=== PATIENT | female | born 1955 | race Caucasian/White ===

== ENCOUNTER 2020-07-31 14:23 | Outpatient (CLI) | payer BC, SELFPAY ==
--- NOTE | 2020-07-31 14:30 | MM_ITS ---
WS: [id number] Exam: [id number] Date/Time of Exam: 07/31/2020 2:41 PM Reason For Exam: SCREENING VIEWS: MLO and CC views both breasts. Comparison made with prior exam of 11/20/2017. Findings: There was no sign of mass, architectural distortion or suspicious calcification in either breast. Fa tty MM/[place] [id number] Impression: BI-RADS: 2-Benign FOLLOW-UP: 1 Year Follow-up This mammogram was also analyzed by the Computer Aided Detection System [employer] Educ[employer].
== END 2020-07-31 14:24 | disposition home or self-care (01) ==
LOC: RADSHAW 14:27
PROVIDERS: PCP Family Medicine; Visit Provider Family Medicine
DX: Z12.31 Encounter for screening mammogram for malignant neoplasm of breast (principal)
CPT/HCPCS: 77067

== ENCOUNTER 2021-07-28 12:55 | Outpatient (CLI) | payer MEDICARE, BC, SELFPAY ==
[2021-07-28 13:09] VITALS: BP 157/75; PULSE 76; RESP 18; TEMP 37.1; O2SAT 99; BMI 28.7
--- NOTE | 2021-07-28 13:11 | PC.NURSE ---
Assessments by Aye Rosenberg and documented by Shannon RN
--- NOTE | 2021-07-28 13:17 | PC.NURSE ---
Infusion started by LINSEY Rosenberg/documented by Shannon RN
[2021-07-28 13:34] VITALS: BP 146/81; PULSE 82; RESP 16; TEMP 37.2; O2SAT 98
--- NOTE | 2021-07-28 13:43 | PC.NURSE ---
Assessments by AG/Documented by LALITA
[2021-07-28 14:34] VITALS: BP 140/73; PULSE 82; RESP 17; TEMP 36.2; O2SAT 98
== END 2021-07-28 12:56 | disposition home or self-care (01) ==
PROVIDERS: PCP Family Medicine; Visit Provider Family Medicine
DX: U07.1 COVID-19 (principal)
CPT/HCPCS: 96365

== ENCOUNTER → 2021-12-04 14:55 | Outpatient (BNVA) | payer MEDICARE, BC, SELFPAY | PROVIDERS: PCP Family Medicine; Visit Provider Nurse Practitioner | DX: S82.61XA Displaced fracture of lateral malleolus of right fibula, initial encounter for closed fracture (principal); S86.912A Strain of unspecified muscle(s) and tendon(s) at lower leg level, left leg, initial encounter; W19.XXXA Unspecified fall, initial encounter; M25.471 Effusion, right ankle | CPT/HCPCS: 73562; 73610 ==

== ENCOUNTER → 2022-01-03 11:28 | Outpatient (BNVA) | payer MEDICARE, BC, SELFPAY | PROVIDERS: PCP Family Medicine; Visit Provider Podiatrist Foot & Ankle Surgery | DX: W01.0XXA Fall on same level from slipping, tripping and stumbling without subsequent striking against object, initial encounter (principal); S82.831A Other fracture of upper and lower end of right fibula, initial encounter for closed fracture | CPT/HCPCS: 73610; 99213 ==

== ENCOUNTER → 2022-02-24 08:14 | Outpatient (BNVA) | payer MEDICARE, BC, SELFPAY | PROVIDERS: PCP Family Medicine; Visit Provider Podiatrist Foot & Ankle Surgery | DX: S82.831A Other fracture of upper and lower end of right fibula, initial encounter for closed fracture (principal); W01.0XXA Fall on same level from slipping, tripping and stumbling without subsequent striking against object, initial encounter; M25.571 Pain in right ankle and joints of right foot | CPT/HCPCS: 73610; 99213; 99214 ==

== ENCOUNTER → 2022-03-18 13:37 | Outpatient (BNVA) | payer MEDICARE, BC, SELFPAY | PROVIDERS: PCP Family Medicine; Visit Provider Nurse Practitioner Women's Health | DX: Z01.419 Encounter for gynecological examination (general) (routine) without abnormal findings (principal); Z12.39 Encounter for other screening for malignant neoplasm of breast | CPT/HCPCS: 87624 ==

== ENCOUNTER 2022-04-08 10:37 | Outpatient (CLI) | payer MEDICARE, BC, SELFPAY ==
--- NOTE | 2022-04-08 10:43 | MM_ITS ---
WS: [id number] BILATERAL SCREENING DIGITAL BREAST TOMOSYNTHESIS MAMMOGRAM WITH CAD HISTORY: Z12.39 - Encounter for other screening for malignant neoplasm... COMPARISON: 07/31/2020 and 11/20/2017 Bilateral CC and MLO views with tomosynthesis and synthetic mammography submitted. Computer aided det ection analyzed. Breast composition: There are scattered areas of fibroglandular density. No suspicious masses, microc alcifications or architectural distortion. MM/[place] [id number] IMPRESSION: BI-RADS: 1-Negative FOLLOW UP: 1 Year Follow-up
== END 2022-04-08 10:38 | disposition home or self-care (01) ==
LOC: RAD 10:41
PROVIDERS: PCP Family Medicine; Visit Provider Nurse Practitioner Women's Health
DX: Z12.31 Encounter for screening mammogram for malignant neoplasm of breast (principal)
CPT/HCPCS: 77063; 77067

== ENCOUNTER → 2022-12-20 11:17 | Outpatient (BNVA) | payer MEDICARE, BC, SELFPAY | PROVIDERS: PCP Family Medicine; Visit Provider Family Medicine | DX: Z00.00 Encounter for general adult medical examination without abnormal findings (principal); E78.5 Hyperlipidemia, unspecified | CPT/HCPCS: 80053; 80061 ==

== ENCOUNTER 2022-12-28 09:56 | Emergency (ER) | payer MEDICARE, BC, SELFPAY ==
[2022-12-28 11:01] VITALS: BP 181/85; PULSE 81; TEMP 36.6; O2SAT 100; BMI 30.4
--- NOTE | 2022-12-28 11:06 | XR_ITS ---
WS: [id number] Cervical spine, 3 views, 12/28/2022 Clinical Data: neck pain Comparison: None. Findings: No compression fractures are seen. The disc heights are normal. There is anterior osteoarth ritic spurring at C5-C6 with loss of the normal lordotic curvature. There is no prevertebral soft tis prem swelling. The odontoid is unremarkable. The soft tissues of the neck and the lung apices are norm al. XR/XR cervical spine 3V* [id number] Impression: Osteoarthritis C5-C6.
[2022-12-28 12:53] VITALS: BP 132/78; PULSE 58; O2SAT 99
--- NOTE | 2022-12-28 13:22 | ED_ITS ---
HPI - Back Pain/Injury General: Chief Complaint: Back Pain/Injury Stated Complaint: neck injury Time Seen by Provider: 12/28/22 11:22 History of Present Illness: Patient is a 67-year-old female comes to the ED with neck pain. Patient states she has chronic neck pain has been dealing with it for the past 30 years. Yesterday she was out working outside and lifted a 50 pound bag of bird seed and put it on her left shoulder. After she lifted the bag yesterday she was having some pain on the left side of her neck. This morning she woke up and was still having a lot of pain on left side of neck. Any movement and range of motion of neck causes worsening pain. She rates her pain currently a 5 out of 10. Associated symptoms: Deny abdominal pain, chills, dysuria, fatigue, fever(s), hematuria, nausea or vomiting Review of Systems Const: Denies: fever(s), chills or fatigue Eyes: Denies: change in vision or eye discomfort ENMT: Denies: throat pain, odynophagia, nasal discharge or nasal congestion Card: Denies: chest pain, palpitations, edema, swelling of feet/ankles, dyspne a on exertion or orthopnea Resp: Denies: dyspnea, productive cough or non-productive cough GI: Denies: abdominal pain, nausea, vomiting, diarrhea, constipation or hematochezia : Denies: flank pain, dysuria or hematuria Musc: Reports: neck pain; Denies: back pain or extremity swelling Skin/Breast: Denies: rash or new lesions Neuro: Denies: headache(s), numbness in extremities or weakness in extremities [facility] PFSH: Medical History (Updated 12/28/22 @ 13:44 by HANY Cardoso) History of diverticulitis History of fracture of fibula closed avulsion fx of distal end of the Right fibula. No pertinent past medical history neghx: htn,dm,thyroid,dvt/pe PCP: Dr. Person TIA (transient ischemic attack) (~09/27/16) Surgical History (Updated 03/18/22 @ 13:08 by Lorena Ward, CREW DISPATCHER, WHNP) Hx laparoscopic cholecystectomy (~2007) Hx of colonoscopy S/P removal of ovarian cyst (~1987) both ovaries Family History Grandmother Diabetes Maternal Father Heart disease Hypercholesteremia Grandfather Stroke Maternal Denies family history of Colon cancer Ovarian cancer Breast cancer Hypertension Uterine cancer Thyroid disease Social History Smoking and tobacco status: never smoked Physical Exam Const: COMMON NORMALS: no acute distress, patient oriented x3, healthy appearing and alert HENMT: COMMON NORMALS: normocephalic HEAD & SCALP: normocephalic MOUTH: Normal oral and palatal mucosa present THROAT: posterior oropharynx normal and uvula midline Neck/C-Spine: COMMON NORMALS: supple GENERAL: Yes normal visual inspection CERVICAL SPINE: Yes pain with cervical ROM, No Cervical spine tenderness and Yes Paracervical muscle tenderness left Resp: COMMON NORMALS: normal respiratory effort, No retractions, No use of accessory muscles and clear to auscultation bilaterally AUSCULTATION: clear to auscultation bilaterally Cardio: COMMON NORMALS: regular rate, regular rhythm, S1 normal heart sound present, S2 normal heart sound present, No gallops present (Cardio), No clicks present (Cardio), No murmurs present (Cardio) and Peripheral pulses 2+ throughout RATE: regular rate RHYTHM: regular rhythm HEART SOUNDS: S1 normal heart sound present and S2 normal heart sound present PERIPHERAL PULSES: Peripheral pulses 2+ throughout GI: COMMON NORMALS: Normal to inspection, nondistended, normoactive bowel sounds present, Soft to palpation, non-tender and no masses PALPATION: Yes Soft to palpation : COMMON NORMALS: Yes no CVA tenderness BLADDER/KIDNEY EXAM: Yes no CVA tenderness Back/Pelvis: COMMON NORMALS: no CVA tenderness Extremity: COMMON NORMALS: normal to inspection Neuro: COMMON NORMALS: patient oriented x3 SENSORIUM/ORIENTATION: Yes alert GAIT: Yes Normal gait present Skin: GENERAL SKIN EXAM: dry skin Course Vital Signs: Vital signs: Vital Signs Temperature 98 F 12/28/22 11:01 Pulse Rate 58 L 12/28/22 12:53 Blood Pressure 132/78 12/28/22 12:53 Pulse Oximetry 99 12/28/22 12:53 Oxygen Delivery Me thod Room Air 12/28/22 11:01 MDM - Back Pain/Injury Medical Decision Making Patient is a 67-year-old female comes to the ED with neck pain. Patient states she has chronic neck pain has been dealing with it for the past 30 years. Yesterday she was out working outside and lifted a 50 pound bag of bird seed and put it on her left shoulder. After she lifted the bag yesterday she was having some pain on the left side of her neck. This morning she woke up and was still having a lot of pain on left side of neck. Any movement and range of motion of neck causes worsening pain. She rates her pain currently a 5 out of 10. Vitals stable. Patient has left paracervical muscle tenderness but rest of exam is benign and patient appears in no acute distress. X-ray of cervical spine showed no acute fractures but noted osteoarthritis in the cervical spine. Patient was diagnosed with neck muscle strain and osteoarthritis of cervical spine. She was given a dose of Toradol here in the ED and discharged home. Sent home with a prescription for muscle relaxer and meloxicam. Told to follow-up with her PCP in the next week for reevaluation. Patient understood and agreed with plan. Labs Radiology Impressions Cervical Spine X-Ray 12/28/22 11:06 Impression: Osteoarthritis C5-C6. Discharge Plan Discharge Patient Disposition: Home Clinical Impression: Neck muscle strain Qualifiers: Encounter type: initial encounter Qualified Code(s): S16.1XXA - Strain of muscle, fascia and tendon at neck level, initial encounter Osteoarthritis cervical spine Qualifiers: Spinal osteoarthritis complication: unspecified spinal osteoarthritis Qualified Code(s): M47.812 - Spondylosis without myelopathy or radiculopathy, cervical region Condition: Stable Prescriptions: New meloxicam 15 mg tablet 15 mg PO DAILY PRN (Reason: pain) Qty: 30 0RF cyclobenzaprine 10 mg tablet 10 mg PO BID PRN (Reason: muscle spasm) Qty: 20 0RF No Action silver nitrate applicators 75-25 % stick 1 applic topical ONCE Qty: 1 0RF alprazolam 1 mg tablet 1 mg PO BID PRN (Reason: anxiety) Qty: 60 3RF lovastatin 20 mg tablet 20 mg PO DAILY Qty: 30 11RF Discharge Orders: Discharge ED (Routine); Ordered 12/28/22 Ordered By: Tj Garcia Referrals: Wally Person MD [Primary Care Provider] - Discharge Diet: Regular Discharge Activity: Resume usual activity Activity Restrictions/Additional Instructions: Follow-up with medical provider as directed in the next 5 to 7 days for reevaluation. Take medications as prescribed. Return to the ER or your medical provider if condition worsens. Please read and understand discharge instructions. Thank you for choosing [facility] for your healthcare needs today. Please realize this is an emergency room and that we are providing you with a medical screening exam and this may not be complete and all inclusive of all the testing and or work up that you may need to determine your ailment or severity of your illness. It is very important that you follow up as instructed or that you return to the Emergency Department should you have concerns or if your condition changes or worsens in any way. Coding Level of Care Code ED Border Patrol Agent for Barb Fung
[2022-12-28] MEDS: ketorolac 60 mg/2 mL INJ IM (13:38)
== END 2022-12-28 13:47 | disposition home or self-care (01) ==
PROVIDERS: Emergency Provider Physician Assistant; PCP Family Medicine
DX: S16.1XXA Strain of muscle, fascia and tendon at neck level, initial encounter (principal); M47.812 Spondylosis without myelopathy or radiculopathy, cervical region; Z86.73 Personal history of transient ischemic attack (TIA), and cerebral infarction without residual deficits; X50.0XXA Overexertion from strenuous movement or load, initial encounter
CPT/HCPCS: 72040; 96372; 99284; J1885

== ENCOUNTER 2023-02-22 07:03 | Day surgery (SDC) | payer MEDICARE, BC, SELFPAY ==
[2023-02-20 08:34] VITALS: BMI 30.4
[2023-02-22 07:19] VITALS: BP 165/94; PULSE 82; RESP 17; TEMP 37.2; O2SAT 97
[2023-02-22] MEDS: sodium chloride 0.9% 1,000 ML 30 ML IV (07:27)
--- NOTE | 2023-02-22 09:16 | P.ANESASSM_ITS ---
Pre-Anesthetic Assessment Height/Weight: Height 1.78 m Weight 96.162 kg Temp Pulse Resp BP Pulse Ox O2 Del Method 98.9 F 82 17 165/94 97 Room Air 02/22/23 07:19 02/22/23 07:19 02/22/23 07:19 02/22/23 07:19 02/22/23 07:19 02/22/23 07:19 Preop Diagnosis: screening Operation Date: 02/22/23 08:45 Proposed Procedures p Colonoscopy 90727,Z12.11(Not Applicable) - José Manuel Harrell, DO Was Beta Fiorella taken within 24 hours: N/A Was Clonidine taken within 24 hours: N/A Last intake: Intake Last Liquid Date 02/21/23 Last Liquid Time 22:20 Last Solid Date 02/20/23 Last Solid Time 19:00 Social Alcohol (rare) and No tobacco Exam alert, oriented x 3, clear to auscultation bilaterally and regular rate & rhythm Airway Submandibular: within normal limits Cervical ROM: within normal limits Mallampati: Class II Dentition: chipped and full History/ROS Other Pulmonary None reported CV/HEM None reported None reported Hepatic None reported GI None reported Metabolic Hyperlipidemia [facility] [place] Osteoarthritis/DJD Neuropsych Anxiety and Transient Ischemic Attack (2017 no residual) Anesthetic Plan ASA status: 2 Anesthesia: MAC Medications/Allergies Home Medications Medication Instructions Recorded Confirmed Last Taken Type lovastatin 20 mg tablet 20 mg PO DAILY #30 tabs 12/22/22 02/22/23 02/21/23 Rx alprazolam 1 mg tablet 0.5 mg PO BID PRN anxiety 02/20/23 02/22/23 02/21/23 History Allergies Allergy/AdvReac Type Severity Reaction Status Date / Time sertraline [From Zoloft] Allergy Severe optic Verified 02/22/23 07:17 neuritis milk Allergy ADR-Abdominal Verified 02/22/23 07:17 Pain Sulfa (Sulfonamide Allergy ALGY-Rash Verified 02/22/23 07:17 Antibiotics) Current Medications Generic Name Dose Route Start Last Admin Trade Name Freq PRN Reason Stop Dose Admin Sodium Chloride 1,000 mls @ 30 mls/hr 02/22/23 07:15 02/22/23 07:27 Sodium Chloride 0.9% IV 02/23/23 07:14 30 mls/hr .Q24H CORBY Administration PFSH Anesthesia Medical History (Updated 01/05/23 @ 00:01 by MILLICENT Trivedi) History of diverticulitis History of fracture of fibula closed avulsion fx of distal end of the Right fibula. No pertinent past medical history neghx: htn,dm,thyroid,dvt/pe PCP: Dr. Person TIA (transient ischemic attack) (~09/27/16) Surgical History (Updated 03/18/22 @ 13:08 by Lorena Ward APN, ALICIA) Hx laparoscopic cholecystectomy (~2007) Hx of colonoscopy S/P removal of ovarian cyst (~1987) both ovaries Family History Grandmother Diabetes Maternal Father Heart disease Hypercholesteremia Grandfather Stroke Maternal Denies family history of Colon cancer Ovarian cancer Breast cancer Hypertension Uterine cancer Thyroid disease Social History Smoking and tobacco status: never smoked Data Anesthesia Cardiac Studies: No Data to Display
--- NOTE | 2023-02-22 09:39 | PM.HP ---
Providers/Chief Complaint Primary Care Provider: Wally Person MD Chief Complaint: Z12.11 History of Present Illness Maria Elena Garcia is a 68 year old female here for a screening colonoscopy. She has had 2 previous screenings before. She has a history of diverticulitis. Denies any family history of colon cancer, abdominal pain, diarrhea, constipation, hematochezia and/or melena Medications/Allergies Home Medications Medication Instructions Recorded Confirmed Last Taken Type lovastatin 20 mg tablet 20 mg PO DAILY #30 tabs 12/22/22 02/22/23 02/21/23 Rx alprazolam 1 mg tablet 0.5 mg PO BID PRN anxiety 02/20/23 02/22/23 02/21/23 History Allergies Allergy/AdvReac Type Severity Reaction Status Date / Time sertraline [From Zoloft] Allergy Severe optic Verified 02/22/23 07:17 neuritis milk Allergy ADR-Abdominal Verified 02/22/23 07:17 Pain Sulfa (Sulfonamide Allergy ALGY-Rash Verified 02/22/23 07:17 Antibiotics) PFSH Acute PFSH: Medical History (Updated 02/22/23 @ 09:40 by José Manuel Harrell DO) History of diverticulitis History of fracture of fibula closed avulsion fx of distal end of the Right fibula. No pertinent past medical history neghx: htn,dm,thyroid,dvt/pe PCP: Dr. Person TIA (transient ischemic attack) (~09/27/16) Surgical History (Updated 03/18/22 @ 13:08 by Lorena Ward APN, ALICIA) Hx laparoscopic cholecystectomy (~2007) Hx of colonoscopy S/P removal of ovarian cyst (~1987) both ovaries Family History Grandmother Diabetes Maternal Father Heart disease Hypercholesteremia Grandfather Stroke Maternal Denies family history of Colon cancer Ovarian cancer Breast cancer Hypertension Uterine cancer Thyroid disease Social History Smoking and tobacco status: never smoked Vitals/I&O/Wt Last Vital Signs Temp 98.9 F 02/22/23 07:19 Pulse 82 02/22/23 07:19 Resp 17 02/22/23 07:19 BP 165/94 06/14/23 07:19 Pulse Ox 97 02/22/23 07:19 O2 Del Method Room Air 02/22/23 07:19 A&P Assessment and plan (1) Colon cancer screening: Plan Screening colonoscopy The risks and benefits of the procedure, including bleeding, infection, intestinal perforation requiring surgery, missed lesion were explained to the patient. The patient is understanding of the risks and wishes to proceed. Attestations Medical Necessity Statement*: Home Coding Level of Care Code Acute Code for Chg Fwd Diagnoses Colon cancer screening Z12.11
[2023-02-22 10:08] VITALS: BP 190/82; PULSE 75; RESP 16; TEMP 36.4; O2SAT 99
[2023-02-22 10:29] VITALS: BP 169/74; PULSE 66; RESP 18; O2SAT 99
--- NOTE | 2023-02-22 14:06 | ANE.PACU2 ---
Inpatient post-anesthesia follow up: Airway intact: Yes Vital signs: Temperature 97.6 F Pulse Rate 66 Respiratory Rate 18 Blood Pressure 169/74 Pulse Oximetry 99 Oxygen Delivery Me thod Room Air Oxygen Flow Rate Fraction of Inspir ed Oxygen Hydration adequate: Yes Nausea and vomiting: No Pain level: 1 Mental status: Baseline
== END 2023-02-22 10:50 | disposition home or self-care (01) ==
PROVIDERS: PCP Family Medicine; Visit Provider Surgery
PROC: 0DJD8ZZ Inspection of Lower Intestinal Tract, Via Natural or Artificial Opening Endoscopic (ICD-10-PCS; CPT 45378; principal; 2023-02-22 08:45)
DX: Z12.11 Encounter for screening for malignant neoplasm of colon (principal); K57.30 Diverticulosis of large intestine without perforation or abscess without bleeding; K64.8 Other hemorrhoids; E78.5 Hyperlipidemia, unspecified; Z86.73 Personal history of transient ischemic attack (TIA), and cerebral infarction without residual deficits; Z88.2 Allergy status to sulfonamides
CPT/HCPCS: G0121; J2704; J7030

== ENCOUNTER → 2023-03-28 14:35 | Outpatient (BNVA) | payer MEDICARE, BC, SELFPAY | PROVIDERS: PCP Family Medicine; Visit Provider Nurse Practitioner Women's Health | DX: R87.610 Atypical squamous cells of undetermined significance on cytologic smear of cervix (ASC-US) (principal); R87.810 Cervical high risk human papillomavirus (HPV) DNA test positive | CPT/HCPCS: 87624 ==

== ENCOUNTER 2023-04-21 14:30 | Outpatient (CLI) | payer MEDICARE, BC, SELFPAY ==
--- NOTE | 2023-04-21 14:34 | MM_ITS ---
WS: [id number] BILATERAL 3D TOMOSYNTHESIS DIGITAL SCREENING MAMMOGRAPHY WITH CAD CLINICAL INFORMATION: Z12.31 - Encounter for screening mammogram for malignant ... HISTORY: Screening mammogram. No current complaints. COMPARISON: None. TECHNIQUE: Bilateral CC and MLO views. FINDINGS: Scattered fibroglandular densities bilaterally. No suspicious focal mass, asymmetry, calcifications, or architectural distortion. No evidence of malignancy. Incidental punctate calcifications. Vascular calcification. IMPRESSION: MM/[place] [id number] BI-RADS: 2-Benign FOLLOW UP: 1 Year Follow-up Recommend return to annual screening mammography.
--- NOTE | 2023-04-21 15:30 | XR_ITS ---
WS: [id number] DEXA (DUAL ENERGY X-RAY ABSORPTIOMETRY) Bone mineral density was performed using a [employer] machine. HISTORY: Z78.0 - Asymptomatic menopausal state COMPARISON: None available. Lumbar spine BMD (L1-L4): 1.490 g/cm2 T score: 2.6 Z score: 3.2 Total hip BMD: Left: 1.059 g/cm2. T score: 0.4 Z score: 1.0 Right: 1.051 g/cm2. T score: 0.3 Z score: 0.9 10 year probability of a major osteoporotic fracture is 7.6%. IMPRESSION: NORMAL BONE MINERAL DENSITY based upon the WHO classification for females.
== END 2023-04-21 14:31 | disposition home or self-care (01) ==
PROVIDERS: PCP Family Medicine; Visit Provider Nurse Practitioner Women's Health
DX: Z12.31 Encounter for screening mammogram for malignant neoplasm of breast (principal); Z78.0 Asymptomatic menopausal state
CPT/HCPCS: 77063; 77067; 77080

== ENCOUNTER → 2024-03-28 08:09 | Outpatient (BNVA) | payer MEDICARE, OTHER, SELFPAY | PROVIDERS: PCP Family Medicine; Visit Provider Family Medicine | DX: E78.5 Hyperlipidemia, unspecified (principal) | CPT/HCPCS: 80053; 80061 ==

== ENCOUNTER → 2024-04-25 15:15 | Outpatient (BNVA) | payer MEDICARE, OTHER, SELFPAY | PROVIDERS: PCP Family Medicine; Visit Provider Nurse Practitioner Women's Health | DX: R87.610 Atypical squamous cells of undetermined significance on cytologic smear of cervix (ASC-US); R87.810 Cervical high risk human papillomavirus (HPV) DNA test positive | CPT/HCPCS: 87624 ==

== ENCOUNTER 2024-05-27 07:50 | Outpatient (CLI) | payer MEDICARE, OTHER, SELFPAY ==
--- NOTE | 2024-05-27 07:30 | MM_ITS ---
WS: [id number] BILATERAL SCREENING DIGITAL TOMOSYNTHESIS MAMMOGRAM WITH CAD HISTORY: Z12.39 - Encounter for other screening for malignant neop... COMPARISON: 04/21/2023, 04/08/2022 Bilateral CC and MLO views with tomosynthesis and synthetic mammography submitted. Computer aided det ection analyzed. Breast composition: There are scattered areas of fibroglandular density. No suspicious masses, microc alcifications or architectural distortion. Benign calcifications RIGHT breast. MM/MM scr BI tomosynthesis [id number] IMPRESSION: BI-RADS: 2 - Benign. FOLLOW UP: 1 Year Follow-up
== END 2024-05-27 07:51 | disposition home or self-care (01) ==
LOC: RAD 07:50
PROVIDERS: PCP Family Medicine; Visit Provider Nurse Practitioner Women's Health
DX: Z12.31 Encounter for screening mammogram for malignant neoplasm of breast (principal); R92.323 Mammographic fibroglandular density, bilateral breasts; R92.1 Mammographic calcification found on diagnostic imaging of breast
CPT/HCPCS: 77063; 77067

== ENCOUNTER → 2025-04-29 15:55 | Outpatient (BNVA) | payer MEDICARE, OTHER, SELFPAY | PROVIDERS: PCP Family Medicine; Visit Provider Nurse Practitioner Women's Health | DX: R87.810 Cervical high risk human papillomavirus (HPV) DNA test positive (principal) | CPT/HCPCS: 87624 ==

== ENCOUNTER 2025-06-09 12:52 | Outpatient (CLI) | payer MEDICARE, OTHER, SELFPAY ==
--- NOTE | 2025-06-09 13:00 | MM_ITS ---
WS: [id number] BILATERAL 3D TOMOSYNTHESIS DIGITAL SCREENING MAMMOGRAPHY WITH CAD CLINICAL INFORMATION: Z12.31 - Encounter for screening mammogram for malignant ... HISTORY: Screening mammogram. No current complaints. COMPARISON: 2023 TECHNIQUE: Bilateral CC and MLO views. FINDINGS: Scattered fibroglandular densities bilaterally. No suspicious focal mass, asymmetry, calcifications, or architectural distortion. No evidence of malignancy. Incidental punctate calcification RIGHT breast. Vascular calcification. MM/MM scr tomosynthesis [id number] IMPRESSION: DENSITY: There are scattered areas of fibroglandular density. BI-RADS: 2 - Benign. FOLLOW UP: 1 Year Follow-up Recommend return to annual screening mammography.
--- NOTE | 2025-06-09 13:30 | XR_ITS ---
WS: [id number] SCREENING DEXA SCAN [employer] CLINICAL INFORMATION: Z78.0 - Asymptomatic menopausal state COMPARISON: 2022 FINDINGS: The L1-L4 bone mineral density measures 1.453 g/cm2. This corresponds to a T score score of 2.3 and Z score of 2.9. Left femoral neck bone mineral density measures 1.029 g/cm2. This corresponds to a T score of 0.2 and Z score of 0.8. Right femoral neck bone mineral density measures 1.017 g/cm2. This corresponds to a T score 0.1of and Z score of 0.7. Mean femoral neck bone mineral density measures 1.023 g/cm2. This corresponds to a T score of 0.1 and Z score of 0.8. XR/XR DEXA axial skeleton* [id number] IMPRESSION: Normal bone mineralization. Patient's FRAX calculated 10 year probability for major osteoporotic fracture i s 12.3% and osteoporotic hip fracture is 0.8%. Bone density lumbar spine decreased -0.8% Bone density femoral necks decreased -3.0%
== END 2025-06-09 12:53 | disposition home or self-care (01) ==
LOC: RAD 12:54
PROVIDERS: PCP Family Medicine; Visit Provider Nurse Practitioner Women's Health
DX: Z12.31 Encounter for screening mammogram for malignant neoplasm of breast (principal); Z78.0 Asymptomatic menopausal state; Z13.820 Encounter for screening for osteoporosis
CPT/HCPCS: 77063; 77067; 77080